=== PATIENT | male | born 1935 | race Caucasian/White ===

== ENCOUNTER → 2018-08-20 | Outpatient (CLI) | payer OTHER ==
[~2018-08-20] MED LIST: ADULT LOW DOSE81 MG PO; CO Q-10100 MG PO; DICLOFENAC SODI75 MG PO; FLOMAX0.4 MG PO; LEVOFLOXACIN750 MG PO; LEVOTHYROXINE 0.1 MG PO; LOPRESSOR 50 MG50 M1 PO; NITROGLYCERIN0.4 MG SL; PLAVIX 75 MG TA75 M1 PO; PLAVIX 75 MG TA75 MG PO; PRINIVIL20 MG PO; PRINIVIL40 MG PO; SINEMET 25-1001 EAC1 PO; SYNTHROID PO; TOPROL XL50 MG PO; VITAMIN D1000 UNI1 PO; ZETIA10 MG PO
[2018-08-20 12:25] LABS: HEMATOCRIT 46.5 % (42.0-52.0); HEMOGLOBIN 15.9 gm/dL (14.0-18.0); MCH 30.4 pg (26.0-34.0); MCHC 34.2 g/dL (28.0-37.0); MCV 88.9 fL (80.0-100.0); MPV 7.1 fl. (7.2-11.1); RBC 5.23 mil/uL (4.50-6.00); RDW-CV 13.8 % (10.5-14.5); WBC 5.2 thou/uL (4.0-11.0)
[2018-08-20 12:35] LABS: ANION GAP 5 mmol/L (7-16); BUN 17 mg/dL (7-18); CALCIUM 9.3 mg/dL (8.5-10.1); CHLORIDE 100 mmol/L (98-107); CHOLESTEROL 192 mg/dL (<200); CO2 29 mmol/L (21-32); CREATININE 1.1 mg/dL (0.6-1.3); GLUCOSE 90 mg/dL (70-99); HDL CHOLESTEROL 44 mg/dL (>40); LDL CHOLESTEROL 130 mg/dL (<100); SERUM ASSESSMENT Clear; SODIUM 134 mmol/L (136-145); TC:HDL 4.4 Ratio (Not establshd); TRIGLYCERIDE 90 mg/dL (<150); VLDL 18 mg/dL (<40)
== END ==
LOC: M.LAB 12:04
PROVIDERS: Internal Medicine Cardiovascular Disease
DX: I25.10 Atherosclerotic heart disease of native coronary artery without angina pectoris (principal); I10 Essential (primary) hypertension; E78.00 Pure hypercholesterolemia, unspecified; F10.99 Alcohol use, unspecified with unspecified alcohol-induced disorder; Z88.8 Allergy status to other drugs, medicaments and biological substances

== ENCOUNTER 2020-04-03 09:50 | Inpatient (IN) | payer OTHER ==
[~2020-04-03] VITALS: Ht 175.3 cm; Wt 67.5 kg
[2020-04-03 09:50] VITALS: BP 99/41
[~2020-04-03 09:50] MED LIST changes: -LEVOTHYROXINE 0.1 MG PO; +SYNTHROID100 MC1 PO
[2020-04-03 10:10] LABS: ABSOLUTE EOSINOPHILS 0.2 thou/uL (0.0-0.7); ABSOLUTE LYMPHOCYTES 1.9 thou/uL (0.8-5.3); ABSOLUTE MONOCYTES 0.6 thou/uL (0.0-1.2); ABSOLUTE NEUTROPHILS 4.3 thou/uL (1.6-8.1); BASOPHILS 0.6 %; EOSINOPHILS 2.6 %; HEMATOCRIT 47.5 % (42.0-52.0); HEMOGLOBIN 16.3 gm/dL (14.0-18.0); LYMPHOCYTES 26.6 %; MCH 30.6 pg (26.0-34.0); MCHC 34.4 g/dL (28.0-37.0); MCV 88.9 fL (80.0-100.0); MONOCYTES 9.1 %; NUCLEATED RBCS 0 /100WBC; PLATELET COUNT* 144 thou/uL (150-400); POLYS 61.1 %; RBC 5.34 mil/uL (4.50-6.00); RDW-CV 13.3 % (10.5-14.5)
[2020-04-03 10:12] LABS: CALCIUM 9.4 mg/dL (8.5-10.1); CREATININE 1.6 mg/dL (0.6-1.3); POTASSIUM 3.4 mmol/L (3.5-5.1)
[2020-04-03 10:20] LABS: APTT 32.8 Seconds (25.0-31.3); INR 1.1; PROTIME 11.1 Seconds (9.20-11.50)
[2020-04-03 10:24] LABS: ALBUMIN 4.1 g/dL (3.4-5.0); TOTAL BILIRUBIN 1.9 mg/dL (<0.1-1.0); TOTAL PROTEIN 7.5 g/dL (6.4-8.2)
[2020-04-03 10:43] LABS: URINE BLOOD TRACE (Negative); URINE CLARITY CLEAR; URINE COLOR YELLOW; URINE GLUCOSE-RANDOM NEGATIVE (Negative); URINE KETONES TRACE (Negative); URINE LEUKOCYTES-REFLEX NEGATIVE (Negative); URINE NITRITE-REFLEX NEGATIVE (Negative); URINE PROTEIN NEGATIVE (Negative); URINE SPECIFIC GRAVITY >= 1.030 (1.005-1.030)
[2020-04-03 10:45] LABS: ICTOTEST (BILI CONFIRMATORY) Negative (Negative); URINE BILIRUBIN 1+ (Negative)
--- NOTE | 2020-04-03 15:03 | EKG ---
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[employer] : 1935 Requested By: Colby Medina Order Number: [id number] MD: Hasmukh Kc Measurements Intervals [place] Rate: 92 P: DE: QRS: 64 QRSD: 86 T: 42 QT: 393 QTc: 487 Interpretive Statements Atrial fibrillation Consider anterior infarct ST depression, consider ischemia, lateral lds Baseline wander in lead(s) V1 Electronically Signed On 04-03-2020 15:01:22 CDT by Hasmukh Kc [email or web address] <ELECTRONICALLY SIGNED> By: Hasmukh Kc MD, [facility] 04/03/20 1501 0951 0951 Hasmukh Kc MD, [facility] /EPI
[2020-04-03 15:51] VITALS: BP 130/74
[2020-04-03 17:36] VITALS: BP 130/74
[2020-04-03 18:01] VITALS: BP 154/88
--- NOTE | 2020-04-03 18:25 | NUR ---
PATIENT HERE FROM ER AND ARRIVED TO ROOM THIS EVENING. ALERT AND ORIENTED X 4. UP WITH SBA, FALL RISK PROTOCOL IN PLACE FOR HX OF FALL. IVF INFUSING. [address] VITALS STABLE. HR AFIBB ON STUDY SPECIALIST. SPOKE WITH DR. DENNEY REGARDING ELEVATED TROPONIN, ORDERS RECEIVED TO GIVE HS DOSE OF SOTATOLOL THEN START AGAIN IN AM. ORIENTED TO CALL LIGHT. CALL LIGHT WITHIN REACH, WILL CONTINUE TO MONITOR.
[2020-04-03 20:00] VITALS: BP 111/47
[2020-04-04] VITALS: BP 138/81
[2020-04-04 04:00] VITALS: BP 131/69
[2020-04-04 04:58] LABS: CHOLESTEROL 114 mg/dL (<200); HDL CHOLESTEROL 38 mg/dL (>40); LDL CHOLESTEROL 67 mg/dL (<100); TRIGLYCERIDE 48 mg/dL (<150); VLDL 10 mg/dL (<40)
[2020-04-04 05:07] LABS: SERUM ASSESSMENT Clear
--- NOTE | 2020-04-04 05:53 | NUR ---
ASSESSMENTS COMPLETED AT BEDSIDE, PLEASE REFER TO CHARTING FOR DETAILS. MEDICATIONS ADMINISTERED PER MAR. NO C/O PAIN OR DISCOMFORT NOTED BY PT. PT DID CONVERT FROM AFIB TO SR AT START OF SHIFT AND HAS MAINTAINED HIS RHYTHM. PT WAS ABLE TO WEAN OFF 2L O2 TO RA. HOURLY ROUNDING COMPLETED FOR SAFETY, AND CALL LIGHT WITHIN REACH.
[2020-04-04 07:50] VITALS: BP 116/74
--- NOTE | 2020-04-04 11:25 | NUR ---
Cardiac Rehab. Atrial fib education complete with receptive patient with good questions and participation during education. Questions answered to patient's satisfaction using the Atrial Fib booklet.
--- NOTE | 2020-04-04 11:49 | NUR ---
Pt is A&O. Resides at home alone. Independent and active. Pt has a walker and a cane that he uses PRN. No hx of HH or SNF. Supportive dtr that is available to assist as needed. Per Pt, goal is to return home, no needs anticipated.
[2020-04-04 12:07] VITALS: BP 140/70
--- NOTE | 2020-04-04 14:28 | CON ---
[address] [address] CONSULTATION Name: ASIM HERNANDEZ Room: [address] IN M.R.#: [id number] Admission: 04/03/20 Attend Phys: Ann Ge Discharge: Date of : 33 Report #: [id number] THIS REPORT FOR: //name// cc: Zack Porras Vincent R. DO ~ THIS REPORT FOR: //name// CC: Zack Saenz DATE OF SERVICE: 04/03/2020 CARDIOLOGY CONSULTATION HISTORY OF PRESENT ILLNESS: The patient is an 85-year-old single white male who I was asked to see in the Emergency Room today after he developed atrial fibrillation. The patient has an extensive past medical history. He apparently had stenting of his LAD at [facility] in 2010. Stress test several years ago showed no evidence of ischemia with a normal ejection fraction. He is not very active at this time because of advanced age and a previous history of Parkinson's disease. He uses a walker and a cane. He notes that recently he has been having lightheaded spells. He feels the room is spinning. Several days ago, he fell and injured his side. He denied any vomiting, diarrhea or bleeding. Denied any recent chest pain, increased shortness of breath or palpitations. He came to the Emergency Room today and was found to be in atrial fibrillation. I was asked to see him for further evaluation and treatment. PAST MEDICAL HISTORY: Significant for appendectomy, hernia repair, hip fracture requiring surgery. He has a history of hypertension and hyperlipidemia. MEDICATIONS: He takes cinnamon occasionally for tremor, Zetia, Synthroid, aspirin, lisinopril, metoprolol which he ran out 3 days ago. ALLERGIES: HE HAS AN ALLERGY TO PENICILLIN. FAMILY HISTORY: Negative for heart disease. SOCIAL HISTORY: He is , lives by himself in [place]. Quit smoking years ago. No alcohol abuse. REVIEW OF SYSTEMS: He has no history of stroke, asthma, liver disease, kidney disease or cancer. He wears glasses. No psychiatric illness. [place] [address] CONSULTATION Name: ASIM HERNANDEZ Vince Room: [address]#: [id number] Admission: 04/03/20 Attend Phys: Ann Ge Discharge: Date of : 33 Report #: [id number] PHYSICAL EXAMINATION: GENERAL: Revealed an elderly male, lying in bed, appeared in no distress. VITAL SIGNS: Blood pressure 120/70, and pulse is 80 and regular. He is afebrile. HEENT: He was anicteric. Conjunctivae pink. Mucous membranes moist. NECK: Veins are nondistended. CHEST: Clear to auscultation. CARDIOVASCULAR: Regular rate and rhythm, grade 3 systolic ejection murmur at left sternal border. ABDOMEN: Soft. EXTREMITIES: Had no edema. SKIN: Warm and dry. NEUROLOGIC: Nonfocal. His workup in the Emergency Room, his initial ECG showed atrial fibrillation with a controlled ventricular response rate, nonspecific ST and T-wave changes were noted. Currently, he appears to be in sinus rhythm. His workup, he had an echocardiogram in 2018 that showed ejection fraction 60%, aortic sclerosis, mild mitral regurgitation. The peak gradient across the aortic valve was only 7 mmHg. Nuclear stress test in 2018 using Lexiscan showed ejection fraction of 80%, no reversible defects and no evidence of ischemia. His lab work in the Emergency Room today, portable chest x-ray showed no acute abnormality. He had a CT scan of the head without contrast that showed no acute abnormality. CT scan of the chest without contrast showed chronic lung changes, some scarring, no acute abnormality. He had a carotid Doppler study in 2016 here at [facility] that showed no significant stenosis. LABORATORY DATA: Sodium 141, potassium 3.4, BUN 22, creatinine 1.6. His liver function studies were normal. His troponin 0.06. BNP 306. White blood cell count 7.0, hemoglobin 16.3. IMPRESSION AND RECOMMENDATIONS: 1. Paroxysmal atrial fibrillation. The patient converted on his own. I would recommend switching from metoprolol to sotalol. I would consider anticoagulation, although I would hold it at this time to make sure the patient is not having dizziness. If tolerated, I would start Eliquis 2.5 mg every 12 hours because of his age and chronic kidney disease. 2. Chronic kidney disease. 3. Murmur of aortic sclerosis. 4. Previous stent. Since the patient has previous stent, I would continue aspirin 81 mg a day. 5. Hypertension. The patient has been on a beta jose and ERIC inhibitor. 6. Hyperlipidemia. The patient is on Zetia. If indicated, I would consider [address] [address] CONSULTATION Name: ASIM HERNANDEZ Room: [address] [facility] IN M.R.#: [id number] Admission: 04/03/20 Attend Phys: Ann Ge Discharge: Date of : 33 Report #: [id number] statin drug. 7. History of Parkinson's disease. <ELECTRONICALLY SIGNED> By: Hasmukh Kc MD, FACC 04/04/20 1428 1416 1542Dissa Kc MD, FACC /nt
--- NOTE | 2020-04-04 14:44 | EKG ---
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: : 1935 Requested By: Hasmukh Kc Order Number: [id number] Reading MD: Grabiel Strange Measurements Intervals [place] Rate: 53 P: 39 SD: 211 QRS: 24 QRSD: 96 T: 49 QT: 510 QTc: 479 Interpretive Statements Sinus rhythm Atrial premature beat Borderline prolonged QT interval Compared to ECG 04/03/2020 09:51:21 Atrial premature complex(es) now present Atrial fibrillation no longer present Myocardial infarct finding no longer present ST (T wave) deviation no longer present Possible ischemia no longer present Electronically Signed On 04-04-2020 14:42:33 CDT by Grabiel Strange [email or web address] <ELECTRONICALLY SIGNED> By: Grabiel Strange MD, [facility] 04/04/20 1442 0750 0750 Grabiel Strange MD, [facility] /EPI
--- NOTE | 2020-04-04 15:34 | 2DMMODE ---
[place] [address] 2 D/M-MODE ECHOCARDIOGRAM Name: ASIM HERNANDEZ Room: [address] IN [facility]#: [id number] Admission: 04/03/20 Attend Phys: Paddy Salvador Discharge: Date of : 33 Date of Service: 04/04/20 1532 Report #: [id number] THIS REPORT FOR: cc: Zack Porras,Zack Hendricks,Hasmukh Nuno MD LOCATED WITHIN [facility] ~ APPROVED REPORT Study performed: 04/04/2020 14:43:01 EXAM: Comprehensive 2D, Doppler, and color-flow Echocardiogram Patient Location: In-Patient Room #: [facility] Status: routine BSA: 1.80 HR: 50 bpm BP: 119/58 mmHg Rhythm: NSR Other Information Study Quality: Good Indications Atrial Fibrillation 2D Dimensions IVSd: 12.65 (7-11mm) LVOT Diam: 19.17 (18-24mm) LVDd: 35.64 mm PWd: 9.01 (7-11mm) Ascending Ao: 32.18 (22-36mm) LVDs: 19.35 (25-40mm) Aortic Root: 32.02 mm Volumes Left Atrial Volume (Systole) LA ESV Index: 36.80 mL/m2 Aortic Valve AoV Peak Kris.: 1.38 m/s AO Peak Gr.: 7.56 mmHg LVOT Max P.97 mmHg AO Mean Gr.: 4.49 mmHg LVOT Mean P.41 mmHg LVOT Max V: 1.50 m/s AO V2 VTI: 31.09 cm LVOT Mean V: 0.97 m/s KARIN (VTI): 3.23 cm2 LVOT V1 VTI: 34.78 cm AI [place]: 1.80 m/s2 [place] [address] 2 D/M-MODE ECHOCARDIOGRAM Name: ASIM HERNANDEZ Room: [address] IN [facility]#: [id number] Admission: 04/03/20 Attend Phys: Paddy Salvador Discharge: Date of : 33 Date of Service: 04/04/20 1532 Report #: [id number] AI PHT: 723.38 ms Mitral Valve E/A Ratio: 1.15 MV Decel. Time: 200.98 ms MV E Max Kris.: 0.89 m/s MV PHT: 58.28 ms MVA (PHT): 3.77 cm2 TDI E/Lateral E': 14.83 E/Medial E': 11.13 Medial E' Kris.: 0.08 m/s Lateral E' Rkis.: 0.06 m/s Pulmonary Valve PV Peak Kris.: 0.86 m/s PV Peak Gr.: 2.95 mmHg Tricuspid Valve RAP Estimate: 5.00 mmHg TR Peak Gr.: 23.58 mmHg RVSP: 28.00 mmHg PA Pressure: 28.00 mmHg Left Ventricle The left ventricle is normal size. There is normal LV segmental wall motion. There is normal left ventricular wall thickness. Left ventricular systolic function is normal. The left ventricular ejection fraction is within the normal range. LVEF is 60-65%. The left ventricular diastolic function is normal. Right Ventricle The right ventricle is normal size. The right ventricular systolic function is normal. Atria Left atrium is mildly dilated. The right atrium size is normal. Aortic Valve Mild aortic valve sclerosis. Mild aortic regurgitation. There is no aortic valvular stenosis. Mitral Valve There is mitral annular calcification. Mild mitral regurgitation. No evidence of mitral valve stenosis. [place] [address] 2 D/M-MODE ECHOCARDIOGRAM Name: ASIM HERNANDEZ Vince Room: [address]#: [id number] Admission: 04/03/20 Attend Phys: Paddy Salvador Discharge: Date of : 33 Date of Service: 04/04/20 1532 Report #: [id number] The tricuspid valve is normal in structure. Mild tricuspid regurgitation. No pulmonary hypertension. Pulmonic Valve The pulmonary valve is normal in structure. Trace pulmonic regurgitation. Great Vessels The aortic root is normal in size. IVC is normal in size and collapses >50% with inspiration. Pericardium There is no pericardial effusion. <Conclusion> LVEF is 60-65%. Left atrium is mildly dilated. Mild aortic regurgitation. Mild mitral regurgitation. <ELECTRONICALLY SIGNED> By: Hasmukh Kc MD, [facility] 04/04/20 1532 1532 1532 Hasmukh Kc MD, FACC /INF
[2020-04-04 16:18] VITALS: BP 130/61
--- NOTE | 2020-04-04 17:36 | NUR ---
PATIENT REMAINS IN SINUS RHYTHM/SINUS JERRY THIS SHIFT. DR. DENNEY AWARE. IV SL THIS SHIFT. UP WITH SBA TO BATHROOM. PT ORDERED FOR PATIENT. PATIENT TO POSSIBLY DISCHARGE TOMORROW IF REMAINS STABLE.
[2020-04-04 20:00] VITALS: BP 127/61
[2020-04-05 00:17] VITALS: BP 127/61
[2020-04-05 04:28] VITALS: BP 147/71
--- NOTE | 2020-04-05 06:04 | NUR ---
[facility] PLEASE REFER TO CHARTING FOR DETAILS. MEDICATIONS ADMINISTERED PER MAR. PT HAS NO CURRENT C/O PAIN OR DISCOMFORT TO REPORT. NOTED CONFUSION THIS SHIFT, ASKING WHY HE IS HERE AND STATING THAT HE WANTS TO GO HOME. CURRENTLY IN BED WITH BED ALARM ON AND CALL LIGHT WITHIN REACH.
[2020-04-05 06:35] LABS: CALCIUM 8.1 mg/dL (8.5-10.1); CREATININE 0.8 mg/dL (0.6-1.3); POTASSIUM 3.7 mmol/L (3.5-5.1)
[2020-04-05 08:00] VITALS: BP 171/86
[2020-04-05 10:00] VITALS: BP 171/86
[2020-04-05] MEDS ORDERED: SOTALOL80 MG PO (10:24)
--- NOTE | 2020-04-05 10:36 | EKG ---
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1935 Requested By: Hasmukh Kc Order Number: [id number] Reading MD: Hasmukh Kc Measurements Intervals [place] Rate: 52 P: 32 MT: 215 QRS: 15 QRSD: 94 T: 30 QT: 482 QTc: 449 Interpretive Statements Sinus bradycardia septal infarct, old Baseline wander in lead(s) V2 Compared to ECG 04/04/2020 07:50:26 no change Electronically Signed On 04-05-2020 10:34:20 CDT by Hasmukh Kc [email or web address] <ELECTRONICALLY SIGNED> By: Hasmukh Kc MD, [facility] 04/05/20 1034 0829 0829 Hasmukh Kc MD, [facility] /EPI
[2020-04-05 12:00] VITALS: BP 175/76
--- NOTE | 2020-04-05 13:30 | NUR ---
ASSUMED PT CARE AT 0730. ASSESSMENT COMPLETED CHARTED. ABLE TO MAKE NEEDS KNOWN. PT UPSET ABOUT CLOTHING AND CALLED MULTIPLE TIMES TO US AND CARDIOLOGY GROUP. STATED HE WAS MISSING A SWEATER AND HIS JACKET. CALLED ER AND SECURITY AND THEY STATED THERE WAS NONE OF HIS CLOTHES THERE. CALLED PT DAUGHTER AND SHE CALLED BACK. NOTIFIED HER THAT PT WAS UPSET ABOUT THE MISSING CLOTHES WHICH SHE HAD HIS JACKET. NO SIGN OF HIS SWEATER. AFTER TALKING TO PT, PT APOLOGIZED. PT'S DAUGHTER CAME AND BROUGHT CLOTHES, GOT PT DRESSED AND DISCHARGE WENT OVER WITH PT, AND TOOK PT DOWN TO DAUGHTERS CAR. NO C/O PAIN OR DISCOMFORT. UP TO BATHROOM NEEDED. NO COMMENTS, QUESTIONS OR CONCERNS. ALL BELONGINGS TAKEN WITH PT.
== END 2020-04-05 13:26 | disposition home or self-care (01) | DRG 308 ==
LOC: M.ERS 09:50 → M.2W 12:22 → M.TBA-ER 12:22 → M.2W 17:45
PROVIDERS: Family Medicine; Internal Medicine Cardiovascular Disease; ADMIT Internal Medicine
DX: I48.0 Paroxysmal atrial fibrillation (principal); G93.41 Metabolic encephalopathy; E87.2 Acidosis; E78.5 Hyperlipidemia, unspecified; N18.9 Chronic kidney disease, unspecified; I70.0 Atherosclerosis of aorta; G20 Parkinson's disease; I12.9 Hypertensive chronic kidney disease with stage 1 through stage 4 chronic kidney disease, or unspecified chronic kidney disease; E03.9 Hypothyroidism, unspecified; I25.10 Atherosclerotic heart disease of native coronary artery without angina pectoris; E78.00 Pure hypercholesterolemia, unspecified; Z95.5 Presence of coronary angioplasty implant and graft; Z88.0 Allergy status to penicillin; Z88.8 Allergy status to other drugs, medicaments and biological substances; Z90.49 Acquired absence of other specified parts of digestive tract; Z09 Encounter for follow-up examination after completed treatment for conditions other than malignant neoplasm; Z87.81 Personal history of (healed) traumatic fracture

== ENCOUNTER → 2020-05-15 | Outpatient (CLI) | payer OTHER ==
[~2020-05-15] MED LIST changes: +SOTALOL80 MG PO
== END ==
LOC: M.ULTRA 08:04
PROVIDERS: ATTEND Family Medicine
DX: E04.1 Nontoxic single thyroid nodule (principal); E03.9 Hypothyroidism, unspecified

== ENCOUNTER → 2021-02-14 | Outpatient (CLI) | payer OTHER | LOC: M.ULTRA 09:30 | PROVIDERS: ATTEND Family Medicine | DX: E04.1 Nontoxic single thyroid nodule (principal) ==